=== PATIENT | female | born 1985 | race Caucasian/White ===

== ENCOUNTER → 2017-08-31 | Outpatient (REF) | payer OTHER | LOC: M LAB REF 09:20 | PROVIDERS: ATTEND Physician Assistant | DX: R35.0 Frequency of micturition (principal) ==

== ENCOUNTER 2017-12-21 21:55 | Emergency (ER) | payer OTHER ==
[2017-12-22 01:57] LABS: KETONE, URINE AUTO RFX NEGATIVE (NEGATIVE); LEUKOCYTE ESTERASE UR AUTO RFX NEGATIVE (NEGATIVE); MUCUS, URINE RFX SMALL (NEGATIVE); NITRITE, URINE AUTO RFX NEGATIVE (NEGATIVE); RBC, URINE AUTO RFX 6 /HPF (0-3); SPECIFIC GRAVITY UR AUTO RFX 1.023 (1.002-1.035); SQUAM EPITHELIAL CELL UR AURFX 3 /HPF (0-6); WBC, URINE AUTO RFX 2 /HPF (0-3)
[2017-12-22 03:52] LABS: CHLAMYDIA DNA AMPLIFICATION NEGATIVE (NEGATIVE); GC DNA AMPLIFICATION NEGATIVE (NEGATIVE)
[2017-12-22 04:34] LABS: CONTROL LINE UCG INT CTR LINE PRESENT; URINE PREG TEST NEGATIVE (NEGATIVE)
== END 2017-12-22 06:05 | disposition home or self-care (01) ==
LOC: M ED 21:55
DX: N83.202 Unspecified ovarian cyst, left side (principal)
CPT/HCPCS: 76856

== ENCOUNTER 2018-03-26 06:26 | Day surgery (SDC) | payer OTHER ==
[2018-03-26] MEDS: LR 1,000 ML IV ×2 (06:30→10:04)
[2018-03-26] MEDS ORDERED: LR 1,000 ML IV ×2 (06:45→10:30)
[2018-03-26 06:51] LABS: HEMOGLOBIN 12.9 g/dl (12.0-15.5); MEAN CORPUSCULAR HEMOGLOBIN 27.9 pg (27.0-33.0); MEAN CORPUSCULAR HGB CONC 31.5 g/dl (32.0-36.5); MEAN CORPUSCULAR VOLUME 88.6 fl (80.0-96.0); PLATELET COUNT, AUTOMATED 259 10^3/uL (150-450); RED BLOOD COUNT 4.63 10^6/uL (4.00-5.40); RED CELL DISTRIBUTION WIDTH 13.3 % (11.5-14.5); WHITE BLOOD COUNT 7.7 10^3/uL (4.0-10.0)
[2018-03-26] MEDS ORDERED: fentaNYL 100 MCG/2 ML INJECTION (J3010) As Ordered ×3 (06:56→10:20)
[2018-03-26] MEDS ORDERED: MIDAZOLAM INJ 2 MG/2 ML VIAL (J2250) As Ordered (06:56)
[2018-03-26] MEDS ORDERED: PROPOFOL 200 MG/20 ML VIAL As Ordered (06:58)
[2018-03-26] MEDS ORDERED: dexameTHASONE 4 MG/ML 1ML VIAL (J1100) As Ordered (06:58)
[2018-03-26] MEDS ORDERED: ROCURONIUM BROMIDE 50 MG/5 ML VIAL As Ordered (06:58)
[2018-03-26] MEDS ORDERED: LIDOCAINE 2% INJ 100 MG/5 ML SDV (FOR ANES.) As Ordered (06:58)
[2018-03-26] MEDS ORDERED: ONDANSETRON 4MG/2ML VIAL (J2405) As Ordered ×2 (06:58→10:20)
[2018-03-26 07:10] LABS: CONTROL LINE HCG INT CTR LINE PRESENT; HCG, SERUM QUALITATIVE NEGATIVE (NEGATIVE)
[2018-03-26] MEDS ORDERED: LABETALOL HCL 100 MG/20 ML VIAL As Ordered (08:08)
[2018-03-26] MEDS: BUPIVACAINE HCL 0.25% 30 ML VIAL As Ordered (08:20)
[2018-03-26] MEDS: METHYLENE BLUE 0.5% (5MG/ML) 10 ML AMP (PROVAYBLUE)(Q9968 PER 1MG) As Ordered (09:15)
[2018-03-26] MEDS ORDERED: SUGAMMADEX SODIUM 500 MG/5 ML VIAL (BRIDION) As Ordered (09:18)
[2018-03-26] MEDS: fentaNYL 100 MCG/2 ML INJECTION (J3010) IV ×4 (10:20→10:35)
[2018-03-26] MEDS: NORCO, ANEXSIA 5/325MG TABLET (HYDROcodone/ACETAMINOPHEN) PO ×2 (10:20→10:50)
[2018-03-26] MEDS: ONDANSETRON 4MG/2ML VIAL (J2405) IV (10:20)
[2018-03-26] MEDS ORDERED: NORCO, ANEXSIA 5/325MG TABLET (HYDROcodone/ACETAMINOPHEN) As Ordered (10:20)
== END 2018-03-26 13:00 | disposition home or self-care (01) ==
LOC: M SDC 06:26
DX: R39.15 Urgency of urination (principal); R35.0 Frequency of micturition; N39.41 Urge incontinence; E03.9 Hypothyroidism, unspecified; I10 Essential (primary) hypertension; R01.1 Cardiac murmur, unspecified; F79 Unspecified intellectual disabilities; E78.5 Hyperlipidemia, unspecified; F32.9 Major depressive disorder, single episode, unspecified; Q82.8 Other specified congenital malformations of skin; M12.9 Arthropathy, unspecified; T88.4XXD Failed or difficult intubation, subsequent encounter; T88.59XD Other complications of anesthesia, subsequent encounter; R06.83 Snoring; G47.33 Obstructive sleep apnea (adult) (pediatric); R07.9 Chest pain, unspecified; R06.02 Shortness of breath; R55 Syncope and collapse; E66.01 Morbid (severe) obesity due to excess calories; Z68.42 Body mass index [BMI] 45.0-49.9, adult; Z88.0 Allergy status to penicillin; Z88.1 Allergy status to other antibiotic agents; Z91.040 Latex allergy status; Z79.899 Other long term (current) drug therapy; Z98.51 Tubal ligation status; Z78.0 Asymptomatic menopausal state; Z96.1 Presence of intraocular lens
CPT/HCPCS: 52260

== ENCOUNTER 2018-05-08 08:50 | Inpatient (IN) | payer OTHER ==
[2018-05-08] MEDS ORDERED: ONDANSETRON 4MG/2ML VIAL (J2405) As Ordered (09:21)
[2018-05-08] MEDS ORDERED: MIDAZOLAM INJ 2 MG/2 ML VIAL (J2250) As Ordered (09:21)
[2018-05-08] MEDS ORDERED: dexameTHASONE 4 MG/ML 1ML VIAL (J1100) As Ordered (09:21)
[2018-05-08] MEDS ORDERED: ROCURONIUM BROMIDE 50 MG/5 ML VIAL As Ordered ×3 (09:21→15:14)
[2018-05-08] MEDS ORDERED: PROPOFOL 200 MG/20 ML VIAL As Ordered (09:21)
[2018-05-08] MEDS ORDERED: LIDOCAINE 2% INJ 100 MG/5 ML SDV (FOR ANES.) As Ordered (09:21)
[2018-05-08] MEDS ORDERED: KETOROLAC 60 MG/2 ML VIAL (J1885) As Ordered (09:21)
[2018-05-08] MEDS ORDERED: fentaNYL 250 MCG/5 ML INJECTION (J3010) As Ordered (09:21)
[2018-05-08 09:23] LABS: MEAN CORPUSCULAR HGB CONC 31.7 g/dl (32.0-36.5); MEAN CORPUSCULAR VOLUME 88.4 fl (80.0-96.0); PLATELET COUNT, AUTOMATED 273 10^3/uL (150-450); RED BLOOD COUNT 4.64 10^6/uL (4.00-5.40); RED CELL DISTRIBUTION WIDTH 13.8 % (11.5-14.5); WHITE BLOOD COUNT 6.4 10^3/uL (4.0-10.0)
[2018-05-08 09:49] LABS: CONTROL LINE HCG INT CTR LINE PRESENT; HCG, SERUM QUALITATIVE NEGATIVE (NEGATIVE)
[2018-05-08] MEDS ORDERED: SEVOFLURANE INHAL SOLN 250 ML BTL As Ordered (10:47)
[2018-05-08] MEDS ORDERED: BUPIVACAINE LIPOSOME/PF 1.3% 20 ML VIAL (13.3MG/ML)(EXPAREL) As Ordered (11:28)
[2018-05-08] MEDS ORDERED: HYDROmorphone HCL 2 MG/ML 1ML VIAL (J1170) As Ordered (13:28)
[2018-05-08] MEDS ORDERED: GLYCOPYRROLATE INJ 0.2 MG/ML 2 ML VIAL As Ordered (13:32)
[2018-05-08] MEDS ORDERED: NEOSTIGMINE 10 MG/10 ML VIAL (J2710) As Ordered (13:32)
[2018-05-08] MEDS ORDERED: LABETALOL HCL 100 MG/20 ML VIAL As Ordered (13:38)
[2018-05-08 14:55] LABS: iSTAT CA++ 4.8 MG/DL (4.5-5.3)
[2018-05-08] MEDS ORDERED: ceFAZolin 2 GM/D5W 50 ML IV BAG (J0690 PER 500MG) As Ordered (15:20)
[2018-05-08] MEDS: METHYLENE BLUE 0.5% (5MG/ML) 10 ML AMP (PROVAYBLUE)(Q9968 PER 1MG) As Ordered (15:43)
[2018-05-08] MEDS: LR 1,000 ML IV ×3 (16:50→23:57)
[2018-05-08] MEDS ORDERED: PERCOCET 5MG/325MG TAB PO (17:00)
[2018-05-08] MEDS ORDERED: fentaNYL 100 MCG/2 ML INJECTION (J3010) As Ordered (17:01)
[2018-05-08] MEDS: fentaNYL 100 MCG/2 ML INJECTION (J3010) IV ×4 (17:08→17:29)
[2018-05-08] MEDS: PERCOCET 5MG/325MG TAB PO ×2 (17:24→21:39)
[2018-05-08] MEDS ORDERED: ONDANSETRON 4MG/2ML VIAL (J2405) IV (17:30)
[2018-05-08] MEDS ORDERED: MEPERIDINE INJ 25 MG/ML VIAL (J2175) IV (17:30)
[2018-05-08] MEDS: HYDROMORPHONE HCL 0.5 MG/ 0.5 ML SYRINGE (J1170 PER 1) IV ×2 (17:40→17:46)
[2018-05-08] MEDS: METOCLOPRAMIDE INJ 10MG/2ML VIAL (J2765) IV (17:42)
[2018-05-08] MEDS: MORPHINE 4 MG/ML 1ML VIAL/SYRINGE (J2270) IV (20:20)
[2018-05-08] MEDS: PROMETHAZINE INJ 25 MG/ML VIAL (J2550) IV (20:33)
[2018-05-08] MEDS: DOCUSATE SODIUM 100 MG CAP PO (20:33)
[2018-05-08] MEDS: KETOROLAC 30 MG/ML VIAL (J1885) IV (23:30)
[2018-05-08] MEDS: ONDANSETRON 4MG/2ML VIAL (J2405) IV (23:56)
[2018-05-09] MEDS: PERCOCET 5MG/325MG TAB PO ×3 (02:04→10:48)
[2018-05-09] MEDS: KETOROLAC 30 MG/ML VIAL (J1885) IV ×2 (05:09→11:48)
[2018-05-09 07:31] LABS: BASO % 0.1 % (0.0-1.0); HEMATOCRIT 24.1 % (36.0-47.0); IMMATURE GRANULOCYTE % 0.4 % (0-3.0); LYMPH # 1.9 10^3/uL (1.5-4.5); LYMPH % 16.7 % (24.0-44.0); MEAN CORPUSCULAR HEMOGLOBIN 28.8 pg (27.0-33.0); MEAN CORPUSCULAR VOLUME 90.3 fl (80.0-96.0); MONO # 1.6 10^3/uL (0.0-0.8); MONO % 14.3 % (0.0-5.0); NEUTROPHILS # 7.8 10^3/uL (1.8-7.7); NEUTROPHILS % 68.5 % (36.0-66.0); PLATELET COUNT, AUTOMATED 236 10^3/uL (150-450); RED BLOOD COUNT 2.67 10^6/uL (4.00-5.40); RED CELL DISTRIBUTION WIDTH 14.1 % (11.5-14.5); WHITE BLOOD COUNT 11.4 10^3/uL (4.0-10.0)
[2018-05-09 07:37] LABS: HEMOGLOBIN 7.7 g/dl (12.0-15.5)
[2018-05-09] MEDS: DOCUSATE SODIUM 100 MG CAP PO (09:00)
[2018-05-09] MEDS: LR 1,000 ML IV (09:00)
[2018-05-09] MEDS ORDERED: IBUPROFEN 800 MG TAB PO (19:00)
[2018-05-10 14:40] LABS: iSTAT CA++ 4.7 MG/DL (4.5-5.3)
== END 2018-05-09 14:05 | disposition home or self-care (01) | DRG 743 ==
LOC: M OR 08:50 → M PED 18:10
PROC: 0UT90ZZ Resection of Uterus, Open Approach (ICD-10-PCS; principal; 2018-05-08 10:45)
PROC: 0UTC0ZZ Resection of Cervix, Open Approach (ICD-10-PCS; 2018-05-08 10:45)
PROC: 0UT20ZZ Resection of Bilateral Ovaries, Open Approach (ICD-10-PCS; 2018-05-08 10:45)
PROC: 0UT70ZZ Resection of Bilateral Fallopian Tubes, Open Approach (ICD-10-PCS; 2018-05-08 10:45)
PROC: 0DBW0ZZ Excision of Peritoneum, Open Approach (ICD-10-PCS; 2018-05-08 10:45)
DX: N80.9 Endometriosis, unspecified (principal); R10.2 Pelvic and perineal pain

== ENCOUNTER → 2018-10-15 | Outpatient (REF) | payer OTHER | LOC: M LAB REF 11:57 | DX: J02.9 Acute pharyngitis, unspecified (principal) | CPT/HCPCS: 87081 ==